=== PATIENT | male | born 1960 | race American Indian/Alaskan Native ===

== ENCOUNTER 2019-05-23 03:00 | Emergency (ER) | payer BC ==
--- NOTE | 2019-05-23 03:13 | EDM.PDOC ---
ED HPI GENERAL MEDICAL PROBLEM - General Chief Complaint: Respiratory Problem Stated Complaint: SOB Time Seen by Provider: 05/23/19 03:12 - History of Present Illness INITIAL COMMENTS - FREE TEXT/NARRATIVE: 57-year-old male presents the emergency room with shortness of breath. This is not associated with fevers. The patient has done this once before when he was trying to sleep. The patient awoke this morning with shortness of breath in the past was thought to be due to being fluid overloaded. The patient is on Lasix as well as his blood pressure medications he cannot recall what dose of Lasix he is taking. He is not having any associated chest pain chest pressure at this time. Patient does not have a sore throat fatigue or myalgias at this point. The patient is treated for hypertension he may have had hyperlipidemia at one point and he is on Lasix. Denies other medical problems no prior surgeries. - Related Data Allergies Allergy/AdvReac Type Severity Reaction Status Date / Time No Known Allergies Allergy Verified 05/23/19 03:14 Home Meds: Home Meds Furosemide [Lasix] 1 tab PO DAILY 05/23/19 [History] Lisinopril [Zestril] 10 mg PO DAILY 05/23/19 [History] Metoprolol Tartrate 1 tab PO DAILY 05/23/19 [History] ED ROS GENERAL - Review of Systems Review Of Systems: See Below Constitutional: Reports: No Symptoms HEENT: Reports: No Symptoms Respiratory: Reports: Shortness of Breath. Denies: Cough, Sputum Cardiovascular: Reports: No Symptoms Endocrine: Reports: No Symptoms GI/Abdominal: Reports: No Symptoms : Reports: No Symptoms Musculoskeletal: Reports: No Symptoms Skin: Reports: No Symptoms Neurological: Reports: No Symptoms ED EXAM, GENERAL - Physical Exam Exam: See Below Exam Limited By: No Limitations General Appearance: Alert, No Apparent Distress Head: Atraumatic, Normocephalic Neck: Normal Inspection, Supple, Non-Tender, Full Range of Motion, Other (No JVD ) Respiratory/Chest: No Respiratory Distress, Lungs Clear, Normal Breath Sounds Cardiovascular: Regular Rate, Rhythm, No Edema, No Murmur GI/Abdominal: Normal Bowel Sounds, Soft, Non-Tender, Other (No JVD) Back Exam: Normal Inspection. No: CVA Tenderness (L), CVA Tenderness (R) Extremities: Normal Inspection, No Pedal Edema Neurological: Alert, Oriented, Normal Cognition Course - Vital Signs Last Recorded V/S: Last Vital Signs Temp 36.6 C 05/23/19 03:10 Pulse 63 05/23/19 03:10 Resp 20 05/23/19 03:10 BP 167/94 H 05/23/19 03:10 Pulse Ox 97 05/23/19 03:10 - Orders/Labs/Meds Orders: Active Orders 24 hr Category Date Time Status EKG Documentation Completion [RC] STAT Care 05/23/19 03:26 Active Chest 1V Frontal [CR] Stat Exams 05/23/19 03:26 Taken Labs: Laboratory Tests 05/23/19 05/23/19 05/23/19 Range/Units 03:45 03:45 03:45 WBC 6.67 (4.23-9.07) K/mm3 RBC 4.57 L (4.63-6.08) M/mm3 Hgb 14.5 (13.7-17.5) gm/dl Hct 42.6 (40.1-51.0) % MCV 93.2 H (79.0-92.2) fl MCH 31.7 (25.7-32.2) pg MCHC 34.0 (32.2-35.5) g/dl RDW Std Deviation 44.3 H (35.1-43.9) fL Plt Count 210 (163-337) K/mm3 MPV 10.2 (9.4-12.3) fl Neut % (Auto) 59.6 (34.0-67.9) % Lymph % (Auto) 27.6 (21.8-53.1) % Carter % (Auto) 8.2 (5.3-12.2) % Eos % (Auto) 3.9 (0.8-7.0) Baso % (Auto) 0.6 (0.1-1.2) % Neut # (Auto) 3.97 (1.78-5.38) K/mm3 Lymph # (Auto) 1.84 (1.32-3.57) K/mm3 Carter # (Auto) 0.55 (0.30-0.82) K/mm3 Eos # (Auto) 0.26 (0.04-0.54) K/mm3 Baso # (Auto) 0.04 (0.01-0.08) K/mm3 PT 10.3 (9.7-12.0) SECONDS INR 0.94 APTT 30 (22-31) SECONDS Sodium 141 (136-145) mEq/L Potassium 3.5 (3.5-5.1) mEq/L Chloride 105 (98-107) mEq/L Carbon Dioxide 25 (21-32) mEq/L Anion Gap 14.5 (5-15) BUN 17 (7-18) mg/dL Creatinine 1.0 (0.7-1.3) mg/dL Est Cr Clr Drug Dosing 86.80 mL/min Estimated GFR (MDRD) > 60 (>60) mL/min BUN/Creatinine Ratio 17.0 (14-18) Glucose 114 H (74-106) mg/dL Calcium 9.0 (8.5-10.1) mg/dL Total Bilirubin 0.3 (0.2-1.0) mg/dL AST 18 (15-37) U/L ALT 30 (16-63) U/L Alkaline Phosphatase 114 (46-116) U/L Troponin I < 0.017 (0.00-0.056) ng/mL Total Protein 7.1 (6.4-8.2) g/dl Albumin 3.9 (3.4-5.0) g/dl Globulin 3.2 gm/dL Albumin/Globulin Ratio 1.2 (1-2) Meds: Medications Discontinued Medications Generic Name Dose Route Start Last Admin Trade Name Freq PRN Reason Stop Dose Admin Furosemide 40 mg 05/23/19 03:27 05/23/19 03:51 Lasix IVPUSH 05/23/19 03:28 40 mg NOW ONE Administration Potassium Chloride 40 meq 05/23/19 04:51 05/23/19 04:56 Klor-Con M20 PO 05/23/19 04:52 40 meq ONETIME ONE Administration - Re-Assessments/Exams Free Text/Narrative Re-Assessment/Exam: 05/23/19 05:18 Labs reviewed nondiagnostic. Possible borderline cardiomegaly versus portable chest x-ray. He may have a hint of pulmonary congestion this is very subtle if at all but no infiltrate or effusion. The patient received 40 mg of IV Lasix and feels considerably better he would like to be discharged at this point. Tomorrow, Sunday he should double up on his Lasix we believe he takes 10 mg a day. Then resume normal dosing. Departure - Departure Time of Disposition: 05:20 Disposition: Home, Self-Care 01 Clinical Impression: Heart failure - Discharge Information Referrals: PCP,None [Primary Care Provider] - Forms: ED Department Discharge, ED Return to Work/School Form Additional Instructions: Return to the emergency room with any questions problems or worsening symptoms. It is essential that you follow-up with your regular healthcare provider. Discuss getting a echocardiogram of your heart to help diagnose what is causing these problems and help with the best possible management. Tomorrow, Sunday, double up on your Lasix at home. Sepsis Event Note - Focused Exam Vital Signs: Vital Signs Temp Pulse Resp BP Pulse Ox 05/23/19 03:10 36.6 C 63 20 167/94 H 97 Date Exam was Performed: 05/23/19 Time Exam was Performed: 05:18 - My Orders Last 24 Hours: My Active Orders 05/23/19 03:26 EKG Documentation Completion [RC] STAT Chest 1V Frontal [CR] Stat - Assessment/Plan Last 24 Hours: My Active Orders 05/23/19 03:26 EKG Documentation Completion [RC] STAT Chest 1V Frontal [CR] Stat
[2019-05-23] MEDS ORDERED: Furosemide 40 MG/4 ML VIAL IVPUSH ONE (03:27)
[2019-05-23] MEDS ORDERED: Potassium Chloride 20 MEQ Tab.ER PO ONE (04:51)
--- NOTE | 2019-05-23 06:58 | CR ---
Chest: Portable view of the chest was obtained. Comparison: No prior chest imaging. Heart size within normal limits for portable technique. Tortuous thoracic aorta is seen. Lungs are clear with no acute parenchymal change. Impression: 1. Nothing acute is appreciated on portable chest x-ray. Diagnostic code #1 This report was dictated in MDT
== END 2019-05-23 05:40 | disposition home or self-care (01) ==
LOC: EDBD 03:00 → JD.ED 03:00
DX: I50.9 Heart failure, unspecified (principal); Z79.899 Other long term (current) drug therapy
CPT/HCPCS: 36415; 71045; 80053; 84484; 85025; 85610; 85730; 93005; 96374; 99285; A9270; J1940; 93010; 99283